=== PATIENT | female | born 1985 | race Caucasian/White ===

== ENCOUNTER 2024-02-01 06:20 | Day surgery (SDC) | payer OTHER, SELFPAY ==
[2024-01-29 13:52] VITALS: BMI 32.4
[2024-01-29 13:59] LABS: % Basophils 0.4 % (0-2); % Immature Granulocytes 0.2 % (0-0.5); % Monocytes 10.2 % (1.7-9.3); % Neutrophils 45.2 % (42.2-75.2); Absolute Eosinophils 0.3 10^3/uL (0-0.7); Absolute Lymphocytes 2.2 10^3/uL (1.2-3.4); Absolute Monocytes 0.6 10^3/uL (0.1-0.6); Absolute Neutrophils 2.5 10^3/uL (1.4-6.5); Hematocrit 37.8 % (37.0-47.0); Hemoglobin 12.7 g/dL (12.0-16.0); Mean Corp Hgb Conc. 33.6 g/dL (33.0-37.0); Mean Corpuscular Hgb 28.9 pg (27.0-31.0); Mean Corpuscular Volume 85.9 fL (81.0-99.0); Mean Platelet Volume 9.6 fL (7.4-10.4); Nucleated Red Blood Cells % 0 %; Platelet Count 293 10^3/uL (130-400); Red Cell Dist. Width 13.2 % (11.5-14.5); White Blood Cell Count 5.6 10^3/uL (4.8-10.8)
[2024-01-29 14:27] LABS: HCG, Serum Qualitative Screen Negative
[2024-02-01] VITALS (30 sets, daily range): BP systolic 68–127; BP diastolic 32–105; BMI 32.4
[2024-02-01] MEDS: NORMOSOL-R 1000 IV ×2 (09:00→19:51)
[2024-02-01] MEDS: TORADOL 15 MG IV ×2 (17:38→22:31)
--- NOTE | 2024-02-01 19:43 | PTCARENOTE ---
pt rec'd from PACU at 19:25, aaox3, able to make needs known, IVF via L hand #20, Pt bp 101/67 hr 101, rr 16 afebrile. 98.6, pt denies pain at this time, oriented to unit.
[2024-02-01] MEDS: CLEOCIN 50 IV (20:01)
[2024-02-01] MEDS: MORPHINE SULFATE 1 MG IV (21:12)
[2024-02-01 21:35] LABS: % Basophils 0.1 % (0-2); % Eosinophils 0.1 % (0-6); % Immature Granulocytes 0.3 % (0-0.5); % Lymphocytes 7.4 % (20.5-51.1); % Monocytes 2.2 % (1.7-9.3); % Neutrophils 89.9 % (42.2-75.2); Absolute Lymphocytes 0.8 10^3/uL (1.2-3.4); Absolute Monocytes 0.3 10^3/uL (0.1-0.6); Absolute Neutrophils 10.2 10^3/uL (1.4-6.5); Hematocrit 32.8 % (37.0-47.0); Hemoglobin 11.3 g/dL (12.0-16.0); Mean Corp Hgb Conc. 34.5 g/dL (33.0-37.0); Mean Corpuscular Hgb 29.3 pg (27.0-31.0); Mean Platelet Volume 9.1 fL (7.4-10.4); Nucleated Red Blood Cells % 0 %; Platelet Count 277 10^3/uL (130-400); Red Blood Cell Count 3.86 10^6/uL (4.20-5.40); Red Cell Dist. Width 12.9 % (11.5-14.5); White Blood Cell Count 11.3 10^3/uL (4.8-10.8)
[2024-02-01] MEDS: LAMICTAL 100 MG PO (22:31)
[2024-02-02] MEDS: NORMOSOL-R 1000 IV ×2 (01:15→11:52)
[2024-02-02 03:24] VITALS: BP 110/62
[2024-02-02] MEDS: TORADOL 15 MG IV ×2 (03:50→10:36)
[2024-02-02] MEDS: CLEOCIN 50 IV ×2 (03:51→11:48)
[2024-02-02 07:20] VITALS: BP 101/63
[2024-02-02 07:25] LABS: Hematocrit 31.7 % (37.0-47.0); Hemoglobin 10.7 g/dL (12.0-16.0); Mean Corp Hgb Conc. 33.8 g/dL (33.0-37.0); Mean Corpuscular Hgb 29.2 pg (27.0-31.0); Mean Corpuscular Volume 86.6 fL (81.0-99.0); Mean Platelet Volume 9.1 fL (7.4-10.4); Platelet Count 256 10^3/uL (130-400); Red Blood Cell Count 3.66 10^6/uL (4.20-5.40); Red Cell Dist. Width 13.1 % (11.5-14.5); White Blood Cell Count 13.9 10^3/uL (4.8-10.8)
--- NOTE | 2024-02-02 08:12 | W.PN.GYN.DG ---
Today's Communication / Plan
-
Advance diet
Change pain meds to po
Plan for d/c home later today as long as pt is afebrile and continues to do well
Assessment / Plan
-
Assessment:
S/p LAVH/B/l salpingectomy 02/01/2024
Pt looks great this am
Stable Hgb and VSS
Plan:
Advance diet
Change pain meds to po
Plan for d/c home later today as long as pt is afebrile and continues to do well
Subjective / Objective Data
Subjective Data
Pt already up and walking around this morning. 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 +spont void
No CP/SOB/Leg pain
Surgery d/w pt
Objective Data
Vital Signs
Temp Pulse Resp BP Pulse Ox
98.2 F 89 16 101/63 100
02/02/24 07:20 02/02/24 07:20 02/02/24 07:20 02/02/24 07:20 02/02/24 07:20
Intake & Output
02/01/24 02/02/24 02/03/24
06:59 06:59 06:59
Intake Total 2975 / 2975
Output Total 680 / 680
Balance 2295 / 2295
Intake:
IV fluids (Total) 2875 / 2875
normosol 1500 / 1500
IV piggybacks 100 / 100
Output:
Urine, [place] 200 / 200
Urine, Voided 480 / 480
Other:
Number of approximated MODERATE 1
amounts of urine
Physical Exam
-
Lungs: Clear: Bilateral
Abdomen: Soft and Nontender
Bowel Sounds: Normal
Extremities: No Calf Tenderness and No Edema
Incision: Clean, Dry, Intact and No Erythema
Other Findings:
Trocar sites look good
Data Reviewed
-
Lab Data
02/02/24 07:01
[2024-02-02 11:20] VITALS: BP 123/71
--- NOTE | 2024-02-02 12:58 | CM ---
Cm met with pt bedside
Pt resides with her spouse and 5 children (ages 7-16 y/o)
2SH 4STE, 13 steps upstairs
Pt is independent with her ADLs, denies DMEs
PCP- Berta Perdue
Rx- Luther Mckeon
Discharge Disposition- home, no needs-spouse transport
[2024-02-02 15:41] VITALS: BP 106/65
[2024-02-02] MEDS: MOTRIN 800 MG PO (15:48)
== END 2024-02-02 16:13 | disposition home or self-care (01) ==
LOC: SDS 06:20
PROVIDERS: ATTENDING PHYSICIAN Obstetrics & Gynecology Gynecology; FAMILY PHYSICIAN Family Medicine
DX: N92.0 Excessive and frequent menstruation with regular cycle (principal)
CPT/HCPCS: 58552; 88307; 36415; 84703; 85025; 85027; 86850; 86900; 86901; C1776

== ENCOUNTER → 2024-06-19 15:02 | Outpatient (REF) | payer OTHER, SELFPAY | LOC: HWWDC 15:02 | PROVIDERS: ATTENDING PHYSICIAN Obstetrics & Gynecology Gynecology; FAMILY PHYSICIAN Family Medicine | DX: Z12.31 Encounter for screening mammogram for malignant neoplasm of breast (principal) | CPT/HCPCS: 77063; 77067 ==

== ENCOUNTER 2024-07-06 03:29 | Observation (INO) | payer OTHER, SELFPAY ==
[2024-07-05] VITALS (18 sets, daily range): BP systolic 66–112; BP diastolic 40–80
--- NOTE | 2024-07-05 17:53 | ED.GENMED ---
ED Provider Triage
<Rei Orona PA-C - Last Filed: 07/05/24 17:59>
-
Patient seen by provider in Triage?: Seen in Triage
Attestation: A medical screening examination has been initiated by a qualified medical provider. Based on the assessment performed at this time, it has been determined that an emergent medical condition may exist and the patient has been informed
that further medical evaluation and possible additional diagnostic testing may be needed.
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 Generalized abdominal pain since this morning. Still notes that generalized discomfort now. Status post hysterectomy this past January. She does endorse back pain associated with this.
Patient brought immediately back to the ER for labs and CT imaging. CT scan called and patient to be brought to CT scan immediately. Also of note, patient's maternal aunt and grandfather both had ruptured AAA's.
GENERAL: Alert , in no apparent distress
EYE: No visual abnormalities.
NECK: Trachea midline
ENT: No visible abnormalities.
LUNGS: No acute respiratory distress
NEUROLOGICAL: Alert and oriented
SKIN: Skin intact. No visible changes.
MUSCULOSKELETAL: Moving extremities normally
PSYCH: Normal and appropriate interaction.
This is a medical evaluation conducted in person to initiate diagnostic evaluation and provide initial therapeutics. Please see further documentation by the treating clinician.
History of Present Illness
<Rei Orona PA-C - Last Filed: 07/05/24 17:59>
General
Chief Complaint: Fainting/Passed Out
Time Seen by Provider: 07/05/24 19:57
<Ryan Ash MD - Last Filed: 07/06/24 14:22>
General
Source: patient
Exam Limitations: none
Nursing documentation reviewed up to this point in time: agreed with
History of Present Illness
History of Present Illness:
Patient status post hysterectomy in January 2024 secondary to excessive bleeding and pain, presents to ED for evaluation after multiple syncopal episodes today at home. Patient states that when she got up this morning, patient was at her baseline
health without any discomfort. Shortly after having breakfast consisting of coffee and donuts, she started to experience lower abdominal pain. Patient was able to go outside and run errands and when she returned, her pain had persisted. Patient
fell asleep on the couch, with the hope that she will feel better. When she woke up, her pain continued and when she went to restroom, while sitting on toilet, she felt lightheaded, diaphoretic, ringing sensation to ears, and she subsequently
passed out, falling off of toilet. Patient reports passing out for very brief period of time. Denies any injuries in the fall. Since then, patient had 2 additional episodes of syncope with preceding dizziness, nausea, and diaphoresis. Per family
member, patient was noted to be pale when the incident occurred. Of arrival, patient found to be pale and hypotensive. Patient reports having had syncopal episodes in the past secondary to pain, but states her symptoms today were different.
Abdominal pain described as sharp, across lower abdomen, without any alleviating or exacerbating factors. Denies trauma. Denies back pain. Denies difficulty urination. Denies vaginal bleeding.
Past History
<Rei Orona PA-C - Last Filed: 07/05/24 17:59>
Past History
ED Past Medical History: Other (Status post cholecystectomy)
Social History
Tobacco: Non-smoker
Alcohol: Occasional
Drug: None
Personal:
Living: with family
Family History
Family History: Negative Diabetes, Hypertension or CAD
Review of Systems
<Ryan Ash MD - Last Filed: 07/06/24 14:22>
Review of Systems
Allergies reviewed?: Yes
All Other Systems: ROS reviewed and negative except as documented in HPI and ROS
Constitutional: Reports no symptoms; Denies fever or chills
EENT: Reports no symptoms
Respiratory: Reports no symptoms
Cardiac: Reports diaphoresis and syncope
ABD/GI: Reports abdominal pain and nausea; Denies vomiting
: Reports no symptoms; Denies bleeding
Musculoskeletal: Reports no symptoms
Skin: Reports no symptoms
Neurological: Reports dizzy
Phy Exam
<Ryan Ash MD - Last Filed: 07/06/24 14:22>
Physical Exam
Physical Exam:
Physical Exam
General: mild distress, not acutely ill. afebrile. weak appearing
Head: nc/at. eomi
Neck: supple. no meningeal signs.
Heart: tachycardic, no murmur.
Lungs: no acute respiratory distress. clear bilaterally
Abdomen: normal bowel sounds. moderate lower abdominal tenderness to palpation.
Neuro: alert and oriented x 3. no focal neurological deficits
Skin: no rash
Psychiatric: well kept. interactive and cooperative
Extremities: no edema.
Course
<Rei Orona PA-C - Last Filed: 07/05/24 17:59>
Orders/Labs/Results
Orders:
Orders
07/05/24 17:43
Electrocardiogram (*1) Urgent
Reason for Study: Syncope
EKG- Treatment ONCE
07/05/24 17:56
CT Chest/abd/pelvis Angio W/wo Urgent
Comment:
Reason For Exam: abd pain, syncope, s/p hysterectomy
07/05/24 17:59
CMP [Comprehensive Metabolic Panel] Urgent
Complete Blood Count/With Diff Urgent
Lipase Urgent
Troponin I Urgent
0.9% Sodium Chloride 1000 ml [Nss] 1,000 ml IV BOLUS
07/05/24 18:43
Type+Screen Urgent
PTT Urgent
Prothrombin Time Urgent
07/05/24 20:10
US Pelvis W Transvag Combined Urgent
Comment:
Reason For Exam: lower abd/pelvic pain
07/05/24 22:09
Morphine Sulfate 2 mg IV NOW STA
07/05/24 22:49
Hematocrit Urgent
Hemoglobin Urgent
07/05/24 23:54
CeFAZolin 2 GRAM [Ancef] 2 grams in 10 ml IV PRE PROCEDURE
07/05/24 23:56
Compression Sleeves [Pneumatic Compression Sleeves] As Directed
Type: Thigh high
DX Deep Vein Thrombosis Video Routine
07/06/24 00:00
Clindamycin 900 mg/50 ml [Cleocin] 900 mg in 50 ml IV PRE PROCEDURE
07/06/24 00:12
Fentanyl Citrate/Pf [Sublimaze] 50 mcg IV NOW STA
07/06/24 00:25
Fentanyl Citrate/Pf [Sublimaze] 100 mcg .ROUTE .STK-MED ONE
Midazolam HCl [Versed] 2 mg .ROUTE .STK-MED ONE
07/06/24 00:28
Bupivacaine 0.25%Pf/Epinephrin [Sensorcaine-Epi 0.25%-0.0005] 30 ml .ROUTE .STK-MED ONE
07/06/24 01:09
HYDROmorphone [Dilaudid] 0.25 mg IV PACU-Q5MPRN PRN
HYDROmorphone [Dilaudid] 0.5 mg IV PACU-Q5MPRN PRN
Meperidine [Demerol] 12.5 mg IV PACU-Q5MPRN PRN
Ondansetron Injectable [Zofran] 4 mg IV PACU-ONCEPRN PRN
Prochlorperazine [Compazine] 5 mg IV PACU-ONCEPRN PRN
Notify MD As Directed
Notify physician if: for SDS patients with known or suspected sleep obstructive sleep apnea, monitor in the
PACU.
Notify MD for any apneic/desaturation episodes
O2 Therapy [RESP] Urgent
Titrate/Wean O2 to maintain O2 sat greater than (%): 92
Special Instructions: -Provide supplemental oxygen to achieve O2 sat of 92% or greater.
-After 15 min, may wean O2 and discontinue if patient is able to maintain O2 sat of 92%
or greater during recovery period.
If patient is a discharge home, without oxygen therapy, notify anestheiologist if
unable to maintain O2 SAT of 92% or greater on room air for MD clearance.
07/06/24 01:10
CeFAZolin SODIUM [Ancef] 2,000 mg .ROUTE .STK-MED ONE
07/06/24 01:15
Normosol (Mult Electrolytes) [Normosol-R/Plasmalyte-A] 1,000 ml IV PER PROTOCOL
07/06/24 01:25
Dexamethasone Sod Phosphate [Decadron] 20 mg .ROUTE .STK-MED ONE
Lidocaine HCl/Pf [Xylocaine-Mpf 1% Vial] 50 mg .ROUTE .STK-MED ONE
Propofol [Diprivan] 20 ml .ROUTE .STK-MED
Rocuronium [place] [Rocuronium] 50 mg .ROUTE .STK-MED ONE
07/06/24 01:26
Fentanyl Citrate/Pf [Sublimaze] 100 mcg .ROUTE .STK-MED ONE
07/06/24 01:47
Phenylephrine HCl/0.9% NaCl [David-Synephrine] 1,000 mcg .ROUTE .STK-MED ONE
07/06/24 01:57
Metoclopramide [Reglan] 10 mg .ROUTE .STK-MED ONE
Propofol [Diprivan] 20 ml .ROUTE .STK-MED
07/06/24 02:01
Sugammadex Sodium [Bridion] 200 mg .ROUTE .STK-MED ONE
07/06/24 02:10
Acetaminophen 1000MG/100Ml [Ofirmev] 1,000 mg in 100 ml .ROUTE .STK-MED
OR Pathology Routine
Pre-Operative Diagnosis: RIGHT RUPTURED OVARIAN CYST
Operative Procedure: DIAGNOSTIC LAP
Surgeon: YASMINE
Circulating Nurse: PERI
Specimen Type: RIGHT OVARY AND CYST
07/06/24 02:11
HYDROmorphone [Dilaudid] 1 mg .ROUTE .STK-MED ONE
07/06/24 02:56
Ondansetron Injectable [Zofran] 4 mg IV Q6HPRN PRN
Advance Diet as Tolerated As Directed
Goal Diet: Regular
07/06/24 02:57
Admit Patient As Directed
Co-Sign Provider:
Level of Care: Observation services
Assign to:: Medical/Surgical
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
Diagnosis: Post op RSO - hemoperitoneum
Patient Condition: Good
Reason for Hospitalization: Surgery
Expected length of stay greater than two midnights?: No
ELOS- Estimated Length of Stay in days: 1
I certify the patient meets the requirements for IP care: Yes
Diagnosis: post-operative hysterectomy
Activity As Directed
Activity Level: Bathroom Privileges
Intake/ Output As Directed
Frequency: Per unit guidelines
Call for Urine Output less than: 30 mL over 1 hour
Comment: Strict Intake and Output
Notify MD As Directed
Notify physician if: Call doctor for temperature >100.4 F, systolic blood pressure > 150 or < 90, urine output
less than 30 mL over 1 hour, Pulse > 100 or < 50
Vital Signs As Directed
Frequency: Post-operative guidelines
Call for:: temp > 100.4 F, SBP > 150 or < 90, Pulse > 100 or < 50
PRN Pain Medication Management As Directed
May give lesser potent ordered pain med per pt: Yes
preference::
Protocol:: Medication orders for pain may be administered in a
manner that supports deferring to patient preference
when the pt is:
- Requesting an ordered lesser potent pain medication.
Least to most potent pain medications are defined
as: acetaminophen < NSAID < tramadol < opioids
(morphine, oxycodone, hydromorphone).
- Requesting a lesser dose of the same medication IF
ORDERED.
- Requesting a less intrusive route of administration
if both routes are prescribed by the provider (PO <
IV).
DX Deep Vein Thrombosis Video Routine
07/06/24 03:00
Ketorolac [Toradol] 15 mg IV Q6H
07/06/24 03:01
Oxycodone [Roxicodone] 5 mg PO Q4HPRN PRN
07/06/24 03:17
Meperidine [Demerol] 25 mg .ROUTE .STK-MED ONE
07/06/24 06:44
H&H Routine
07/06/24 08:00
Heparin 5,000 units SC Q12
Abnormal Lab Results
07/05/24 07/05/24
17:59 22:49
WBC 15.8 H 10^3/uL
(4.8-10.8)
Hgb 11.9 L g/dL 10.4 L g/dL
(12.0-16.0) (12.0-16.0)
Hct 36.4 L % 31.0 L %
(37.0-47.0) (37.0-47.0)
MCHC 32.7 L g/dL
(33.0-37.0)
Abs Immat Gran (auto) 0.1 H 10^3/uL
(0-0.05)
Absolute Neuts (auto) 11.7 H 10^3/uL
(1.4-6.5)
Absolute Monos (auto) 0.9 H 10^3/uL
(0.1-0.6)
Lymphocytes % 18.3 L %
(20.5-51.1)
Glucose 117 H mg/dl
(70-99)
07/05/24 22:49
07/05/24 17:59
Vital Signs
Initial and Last Documented VS:
Initial Vital Signs
Temp Pulse Resp BP Pulse Ox
98 F 120 16 109/74 98
07/05/24 17:52 07/05/24 17:52 07/05/24 17:52 07/05/24 17:52 07/05/24 17:52
Last Documented Vital Signs
Temp Pulse Resp BP Pulse Ox
98.2 F 94 16 105/61 98
07/06/24 07:40 07/06/24 07:40 07/06/24 07:40 07/06/24 07:40 07/06/24 07:40
<Ryan Ash MD - Last Filed: 07/06/24 14:22>
Orders/Labs/Results
Orders:
Orders
07/05/24 17:43
Electrocardiogram (*1) Urgent
Reason for Study: Syncope
EKG- Treatment ONCE
07/05/24 17:56
CT Chest/abd/pelvis Angio W/wo Urgent
Comment:
Reason For Exam: abd pain, syncope, s/p hysterectomy
07/05/24 17:59
CMP [Comprehensive Metabolic Panel] Urgent
Complete Blood Count/With Diff Urgent
Lipase Urgent
Troponin I Urgent
0.9% Sodium Chloride 1000 ml [Nss] 1,000 ml IV BOLUS
07/05/24 18:43
Type+Screen Urgent
PTT Urgent
Prothrombin Time Urgent
07/05/24 20:10
US Pelvis W Transvag Combined Urgent
Comment:
Reason For Exam: lower abd/pelvic pain
07/05/24 22:09
Morphine Sulfate 2 mg IV NOW STA
07/05/24 22:49
Hematocrit Urgent
Hemoglobin Urgent
07/05/24 23:54
CeFAZolin 2 GRAM [Ancef] 2 grams in 10 ml IV PRE PROCEDURE
07/05/24 23:56
Compression Sleeves [Pneumatic Compression Sleeves] As Directed
Type: Thigh high
DX Deep Vein Thrombosis Video Routine
07/06/24 00:00
Clindamycin 900 mg/50 ml [Cleocin] 900 mg in 50 ml IV PRE PROCEDURE
07/06/24 00:12
Fentanyl Citrate/Pf [Sublimaze] 50 mcg IV NOW STA
07/06/24 00:25
Fentanyl Citrate/Pf [Sublimaze] 100 mcg .ROUTE .STK-MED ONE
Midazolam HCl [Versed] 2 mg .ROUTE .STK-MED ONE
07/06/24 00:28
Bupivacaine 0.25%Pf/Epinephrin [Sensorcaine-Epi 0.25%-0.0005] 30 ml .ROUTE .STK-MED ONE
07/06/24 01:09
HYDROmorphone [Dilaudid] 0.25 mg IV PACU-Q5MPRN PRN
HYDROmorphone [Dilaudid] 0.5 mg IV PACU-Q5MPRN PRN
Meperidine [Demerol] 12.5 mg IV PACU-Q5MPRN PRN
Ondansetron Injectable [Zofran] 4 mg IV PACU-ONCEPRN PRN
Prochlorperazine [Compazine] 5 mg IV PACU-ONCEPRN PRN
Notify MD As Directed
Notify physician if: for SDS patients with known or suspected sleep obstructive sleep apnea, monitor in the
PACU.
Notify MD for any apneic/desaturation episodes
O2 Therapy [RESP] Urgent
Titrate/Wean O2 to maintain O2 sat greater than (%): 92
Special Instructions: -Provide supplemental oxygen to achieve O2 sat of 92% or greater.
-After 15 min, may wean O2 and discontinue if patient is able to maintain O2 sat of 92%
or greater during recovery period.
If patient is a discharge home, without oxygen therapy, notify anestheiologist if
unable to maintain O2 SAT of 92% or greater on room air for MD clearance.
07/06/24 01:10
CeFAZolin SODIUM [Ancef] 2,000 mg .ROUTE .STK-MED ONE
07/06/24 01:15
Normosol (Mult Electrolytes) [Normosol-R/Plasmalyte-A] 1,000 ml IV PER PROTOCOL
07/06/24 01:25
Dexamethasone Sod Phosphate [Decadron] 20 mg .ROUTE .STK-MED ONE
Lidocaine HCl/Pf [Xylocaine-Mpf 1% Vial] 50 mg .ROUTE .STK-MED ONE
Propofol [Diprivan] 20 ml .ROUTE .STK-MED
Rocuronium [place] [Rocuronium] 50 mg .ROUTE .STK-MED ONE
07/06/24 01:26
Fentanyl Citrate/Pf [Sublimaze] 100 mcg .ROUTE .STK-MED ONE
07/06/24 01:47
Phenylephrine HCl/0.9% NaCl [David-Synephrine] 1,000 mcg .ROUTE .STK-MED ONE
07/06/24 01:57
Metoclopramide [Reglan] 10 mg .ROUTE .STK-MED ONE
Propofol [Diprivan] 20 ml .ROUTE .STK-MED
07/06/24 02:01
Sugammadex Sodium [Bridion] 200 mg .ROUTE .STK-MED ONE
07/06/24 02:10
Acetaminophen 1000MG/100Ml [Ofirmev] 1,000 mg in 100 ml .ROUTE .STK-MED
OR Pathology Routine
Pre-Operative Diagnosis: RIGHT RUPTURED OVARIAN CYST
Operative Procedure: DIAGNOSTIC LAP
Surgeon: YASMINE
Circulating Nurse: PERI
Specimen Type: RIGHT OVARY AND CYST
07/06/24 02:11
HYDROmorphone [Dilaudid] 1 mg .ROUTE .STK-MED ONE
07/06/24 02:56
Ondansetron Injectable [Zofran] 4 mg IV Q6HPRN PRN
Advance Diet as Tolerated As Directed
Goal Diet: Regular
07/06/24 02:57
Admit Patient As Directed
Co-Sign Provider:
Level of Care: Observation services
Assign to:: Medical/Surgical
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
Diagnosis: Post op RSO - hemoperitoneum
Patient Condition: Good
Reason for Hospitalization: Surgery
Expected length of stay greater than two midnights?: No
ELOS- Estimated Length of Stay in days: 1
I certify the patient meets the requirements for IP care: Yes
Diagnosis: post-operative hysterectomy
Activity As Directed
Activity Level: Bathroom Privileges
Intake/ Output As Directed
Frequency: Per unit guidelines
Call for Urine Output less than: 30 mL over 1 hour
Comment: Strict Intake and Output
Notify MD As Directed
Notify physician if: Call doctor for temperature >100.4 F, systolic blood pressure > 150 or < 90, urine output
less than 30 mL over 1 hour, Pulse > 100 or < 50
Vital Signs As Directed
Frequency: Post-operative guidelines
Call for:: temp > 100.4 F, SBP > 150 or < 90, Pulse > 100 or < 50
PRN Pain Medication Management As Directed
May give lesser potent ordered pain med per pt: Yes
preference::
Protocol:: Medication orders for pain may be administered in a
manner that supports deferring to patient preference
when the pt is:
- Requesting an ordered lesser potent pain medication.
Least to most potent pain medications are defined
as: acetaminophen < NSAID < tramadol < opioids
(morphine, oxycodone, hydromorphone).
- Requesting a lesser dose of the same medication IF
ORDERED.
- Requesting a less intrusive route of administration
if both routes are prescribed by the provider (PO <
IV).
DX Deep Vein Thrombosis Video Routine
07/06/24 03:00
Ketorolac [Toradol] 15 mg IV Q6H
07/06/24 03:01
Oxycodone [Roxicodone] 5 mg PO Q4HPRN PRN
07/06/24 03:17
Meperidine [Demerol] 25 mg .ROUTE .STK-MED ONE
07/06/24 06:44
H&H Routine
07/06/24 08:00
Heparin 5,000 units SC Q12
Abnormal Lab Results
07/05/24 07/05/24
17:59 22:49
WBC 15.8 H 10^3/uL
(4.8-10.8)
Hgb 11.9 L g/dL 10.4 L g/dL
(12.0-16.0) (12.0-16.0)
Hct 36.4 L % 31.0 L %
(37.0-47.0) (37.0-47.0)
MCHC 32.7 L g/dL
(33.0-37.0)
Abs Immat Gran (auto) 0.1 H 10^3/uL
(0-0.05)
Absolute Neuts (auto) 11.7 H 10^3/uL
(1.4-6.5)
Absolute Monos (auto) 0.9 H 10^3/uL
(0.1-0.6)
Lymphocytes % 18.3 L %
(20.5-51.1)
Glucose 117 H mg/dl
(70-99)
07/05/24 22:49
07/05/24 17:59
Vital Signs
Initial and Last Documented VS:
Initial Vital Signs
Temp Pulse Resp BP Pulse Ox
98 F 120 16 109/74 98
07/05/24 17:52 07/05/24 17:52 07/05/24 17:52 07/05/24 17:52 07/05/24 17:52
Last Documented Vital Signs
Temp Pulse Resp BP Pulse Ox
98.2 F 94 16 105/61 98
07/06/24 07:40 07/06/24 07:40 07/06/24 07:40 07/06/24 07:40 07/06/24 07:40
<Ryan Ash MD - Last Filed: 07/06/24 14:22>
MDM/Problems Addressed
MDM/Problems Addressed:
Pelvic US report reviewed and discussed with flux plant operator physician () who will come and evaluate the patient.
H/H stable. BP improved after IVF administration.
Pt evaluated by - will proceed to OR.
During evaluation, patient with another brief episode of syncope, preceded by severe pain - syncopal episodes likely secondary to vasovagal response from severe pain. BP noted to be in 60s, responding to IVF bolus.
Critical care statement: A total of 40 minutes of critical care time was provided for this patient. This includes management of unstable vital signs, evaluation of the patient at bedside, reviewing the patient's pertinent medical records, discussion
with consultants, review of old EKGs and review of pertinent medical records. This time with separate from time utilized to perform the aforementioned documented procedures
<Ryan Ash MD - Last Filed: 07/06/24 14:22>
*Critical Care Note
Total Time (30-74mins, 75-104mins- exclusive of procedures): 40 min
ED Attending Note
<Rei Orona PA-C - Last Filed: 07/05/24 17:59>
-
Portions of this chart may have been created with voice recognition software.� Occasional wrong word or��sound alike� substitutions may have occurred due to the inherent limitations of voice recognition software.
Discharge Plan
Departure
Patient Disposition: OR
Date of Disposition: 07/05/24
Time of Disposition: 23:45
Admit to: OR
Presentation/result/management discussed w/ accepting MD/DO:
Discharge Problem:
Ovarian cyst rupture
Interventions
Interventions:
*General Assessment Last Done: 07/05/24 18:33
*Neglect/Abuse Screening Last Done: 07/05/24 17:52
ED- Fall Risk Assessment Last Done: 07/06/24 00:55
*Nursing Disposition Last Done: 07/06/24 00:55
ED- Cardiac Assessment Last Done: 07/05/24 18:33
ED- Neurological Assessment Last Done: 07/05/24 18:33
Discharge Date and Time
Discharge Date/Time: 07/06/24 00:55
[2024-07-05 18:12] LABS: % Basophils 0.2 % (0-2); % Eosinophils 1.1 % (0-6); % Immature Granulocytes 0.4 % (0-0.5); % Lymphocytes 18.3 % (20.5-51.1); % Monocytes 5.6 % (1.7-9.3); % Neutrophils 74.4 % (42.2-75.2); Absolute Eosinophils 0.2 10^3/uL (0-0.7); Absolute Immature Granulocytes 0.1 10^3/uL (0-0.05); Absolute Lymphocytes 2.9 10^3/uL (1.2-3.4); Absolute Monocytes 0.9 10^3/uL (0.1-0.6); Absolute Neutrophils 11.7 10^3/uL (1.4-6.5); Hematocrit 36.4 % (37.0-47.0); Hemoglobin 11.9 g/dL (12.0-16.0); Mean Corp Hgb Conc. 32.7 g/dL (33.0-37.0); Mean Corpuscular Hgb 28.1 pg (27.0-31.0); Mean Corpuscular Volume 85.8 fL (81.0-99.0); Mean Platelet Volume 9.3 fL (7.4-10.4); Nucleated Red Blood Cells % 0 %; Platelet Count 331 10^3/uL (130-400); Red Blood Cell Count 4.24 10^6/uL (4.20-5.40); White Blood Cell Count 15.8 10^3/uL (4.8-10.8)
[2024-07-05 18:26] LABS: ALT (SGPT) 18 U/L (0-35); AST (SGOT) 21 U/L (14-36); Albumin 4.1 g/dl (3.5-5.0); Alkaline Phosphatase 62 U/L (38-126); Blood Urea Nitrogen 9 mg/dl (7-17); Calcium 8.8 mg/dl (8.4-10.2); Carbon Dioxide 24 mmol/L (22-30); Chloride 104 mmol/L (98-107); Glucose 117 mg/dl (70-99); Lipase 69 U/L (23-300); Potassium 4.6 mmol/L (3.5-5.1); Sodium 136 mmol/L (135-145); Total Bilirubin 0.3 mg/dl (0.2-1.3); eGFR > 60.00
[2024-07-05 18:37] LABS: Troponin I < 0.012 ng/ml
[2024-07-05] MEDS: NSS 1000 IV (18:37)
[2024-07-05 19:04] LABS: INR 1.01; PT 13.6 Sec (11.4-14.6)
[2024-07-05 19:05] LABS: APTT 26.1 Sec (23.4-35.0)
[2024-07-05] MEDS: MORPHINE SULFATE 2 MG IV (22:49)
[2024-07-05 22:56] LABS: Hemoglobin 10.4 g/dL (12.0-16.0)
[2024-07-06] VITALS (10 sets, daily range): BP systolic 91–109; BP diastolic 40–67; BMI 29.9
[2024-07-06] MEDS: DEMEROL 12.5 MG IV (03:18)
[2024-07-06] MEDS: TORADOL 15 MG IV ×2 (03:59→08:45)
--- NOTE | 2024-07-06 04:28 | PTCARENOTE ---
Pt arrived 2S at 0330 in bed from PACU. Pt AAOX3 but drowsy. VSS. no complaints of pain. 3 lap sites with steri strips and covered with bandaids. head to toe assessment complete. bed locked and in the lowest position. call salazar with in reach.
[2024-07-06 07:06] LABS: Hematocrit 28.7 % (37.0-47.0); Hemoglobin 9.5 g/dL (12.0-16.0)
[2024-07-06] MEDS: TYLENOL 650 MG PO (07:14)
--- NOTE | 2024-07-06 08:41 | W.PN.GYN.DG ---
Today's Communication / Plan
-
D/C to home from 23 hour obs
Surgery ended at 2:30 am
Post op appt in 2 weeks - pt to call office
Assessment / Plan
-
Assessment: DOS LPS - right oophorectomy - hemorrhagic cyst
Stable h/h
Plan:
D/C to home from 23 hour obs
Surgery ended at 2:30 am
Post op appt in 2 weeks - pt to call office
Subjective / Objective Data
Subjective Data
Pt feeling much better - + flatus - maye regular diet
Objective Data
Vital Signs
Temp Pulse Resp BP Pulse Ox
98.2 F 94 16 105/61 98
07/06/24 07:40 07/06/24 07:40 07/06/24 07:40 07/06/24 07:40 07/06/24 07:40
Intake & Output
07/05/24 07/06/24 07/07/24
06:59 06:59 06:59
Intake Total 480 / 480
Balance 480 / 480
Intake:
Oral fluids 480 / 480
Physical Exam
-
Abdomen: Soft and Nontender
Bowel Sounds: Normal
Incision: Clean and Dry
Data Reviewed
-
Lab Data
07/06/24 06:44
07/05/24 17:59
[2024-07-06] MEDS: HEPARIN 5000 UNITS SC (08:45)
--- NOTE | 2024-07-06 08:46 | W.DS.TRANS ---
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
-
Discharge Instructions:
Discharge Diagnosis/Procedures Laparoscopic right oophorectomy
Diet No restrictions
Activity No strenuous activity
Driving Restrictions No driving for 24 hours
Bathing Restrictions OK to Shower
Instructions:
Stand-Alone Forms:
Changes to Home Medications: Yes
Discharge Medications:
DC Medications w/original date entered in [employer]
atomoxetine 80 mg capsule (Strattera) 80 mg PO DAILY ADHD 01/28/24
lamotrigine 100 mg tablet (Lamictal) 100 mg PO HS bipolar 01/28/24
Home Medication Changes
Pending Results: No
--- NOTE | 2024-07-06 08:57 | PTCARENOTE ---
Patient tolerated regular diet, patient voided in batroom without difficulty. Patient has minimal c/o pain.
--- NOTE | 2024-07-06 09:17 | CM ---
CM noted dc order. Reviewed chart. Pt is s/p LIME MIXER procedure and has been cleared for dc.
Home w/no needs.
Pt to arrange her own transport at dc.
CM/SW will continue to follow to ensure a safe and timely dc.
== END 2024-07-06 10:05 | disposition home or self-care (01) ==
LOC: 2 SOUTH 03:29
PROVIDERS: Emergency Medicine; Physician Assistant Medical; ADMITTING PHYSICIAN Obstetrics & Gynecology Gynecology; EMERGENCY PHYSICIAN Emergency Medicine; FAMILY PHYSICIAN Family Medicine
DX: N83.201 Unspecified ovarian cyst, right side (principal); K66.1 Hemoperitoneum; R55 Syncope and collapse; R10.30 Lower abdominal pain, unspecified; I95.9 Hypotension, unspecified; R18.8 Other ascites; R00.0 Tachycardia, unspecified; M54.9 Dorsalgia, unspecified; R61 Generalized hyperhidrosis; R42 Dizziness and giddiness; H93.19 Tinnitus, unspecified ear; Z82.49 Family history of ischemic heart disease and other diseases of the circulatory system; Z90.710 Acquired absence of both cervix and uterus; Z90.49 Acquired absence of other specified parts of digestive tract
CPT/HCPCS: 58661; 58662; 88305; 71275; 74174; 76830; 76856; 80053; 83690; 84484; 85014; 85018; 85025; 85610; 85730; 86850; 86900; 86901; 93005; 96361; 96374; 96375; 99291; C1776; G0378; Q9967